=== PATIENT | male | born 1980 | race Caucasian/White ===

== ENCOUNTER 2021-11-12 03:23 | Emergency (ER) | payer BC ==
[2021-11-12] MEDS ORDERED: Alum Hydrox/Mag Hydrox/Simeth 30 ML, Lidocaine 2% 15 ML PO STA ×2 (03:46)
[2021-11-12] MEDS ORDERED: Famotidine 20 MG Tab PO STA (04:06)
[2021-11-12 04:21] VITALS: BP 131/93; PULSE 68
== END 2021-11-12 04:15 | disposition home or self-care (01) ==
LOC: JD.ED 03:23
DX: K21.9 Gastro-esophageal reflux disease without esophagitis (principal); E66.9 Obesity, unspecified; Z68.32 Body mass index [BMI] 32.0-32.9, adult
CPT/HCPCS: 93005; 99284; A9270; 93010; 99282